=== PATIENT | male | born 1945 | race Hispanic/Latino ===

== ENCOUNTER → 2020-11-22 | Outpatient (CLI) | payer MEDICARE | END | disposition home or self-care (01) | LOC: RAH 09:37 | PROVIDERS: ATTEND Internal Medicine | DX: R05 Cough (principal) | CPT/HCPCS: 71046 ==

== ENCOUNTER → 2021-05-22 | Outpatient (CLI) | payer MEDICARE | END | disposition home or self-care (01) | LOC: RAH 14:07 | PROVIDERS: ATTEND Internal Medicine | DX: I08.3 Combined rheumatic disorders of mitral, aortic and tricuspid valves (principal); I44.0 Atrioventricular block, first degree; I11.9 Hypertensive heart disease without heart failure; E78.5 Hyperlipidemia, unspecified; E11.9 Type 2 diabetes mellitus without complications | CPT/HCPCS: 93306; 93356 ==

== ENCOUNTER → 2023-07-10 | Outpatient (CLI) | payer OTHER ==
[~2023-07-10] MED LIST: AMLO5TAB4 PO; CYAN-52 PO; FAMO20TA8 PO; FOLI1 PO
== END | disposition home or self-care (01) ==
LOC: WHH 11:19
PROVIDERS: ATTEND Podiatrist Foot & Ankle Surgery
DX: T87.89 Other complications of amputation stump (principal); I70.245 Atherosclerosis of native arteries of left leg with ulceration of other part of foot; I10 Essential (primary) hypertension; N40.0 Benign prostatic hyperplasia without lower urinary tract symptoms; E11.42 Type 2 diabetes mellitus with diabetic polyneuropathy; E11.52 Type 2 diabetes mellitus with diabetic peripheral angiopathy with gangrene; I96 Gangrene, not elsewhere classified; E11.65 Type 2 diabetes mellitus with hyperglycemia; E78.5 Hyperlipidemia, unspecified; E03.9 Hypothyroidism, unspecified; E11.69 Type 2 diabetes mellitus with other specified complication; M86.8X8 Other osteomyelitis, other site; Z79.84 Long term (current) use of oral hypoglycemic drugs; Z79.899 Other long term (current) drug therapy; Y83.5 Amputation of limb(s) as the cause of abnormal reaction of the patient, or of later complication, without mention of misadventure at the time of the procedure
CPT/HCPCS: G0463; A6248; A4450

== ENCOUNTER → 2023-07-17 | Outpatient (CLI) | payer OTHER ==
[~2023-07-17] MED LIST changes: +LIDOCAINE HCL 4% LTA SOL 4 ML VIAL TP ONE
== END | disposition home or self-care (01) ==
LOC: WHH 08:45
PROVIDERS: ATTEND Podiatrist Foot & Ankle Surgery
DX: T87.89 Other complications of amputation stump (principal); I70.245 Atherosclerosis of native arteries of left leg with ulceration of other part of foot; I10 Essential (primary) hypertension; N40.0 Benign prostatic hyperplasia without lower urinary tract symptoms; E11.42 Type 2 diabetes mellitus with diabetic polyneuropathy; E11.52 Type 2 diabetes mellitus with diabetic peripheral angiopathy with gangrene; I96 Gangrene, not elsewhere classified; E11.65 Type 2 diabetes mellitus with hyperglycemia; E78.5 Hyperlipidemia, unspecified; E03.9 Hypothyroidism, unspecified; E11.69 Type 2 diabetes mellitus with other specified complication; M86.8X8 Other osteomyelitis, other site; Z79.84 Long term (current) use of oral hypoglycemic drugs; Z79.899 Other long term (current) drug therapy; Y83.5 Amputation of limb(s) as the cause of abnormal reaction of the patient, or of later complication, without mention of misadventure at the time of the procedure
CPT/HCPCS: 11042; 87070; 87077 ×4; 87186 ×4; 11045; A6260

== ENCOUNTER → 2023-07-31 | Outpatient (CLI) | payer OTHER | END | disposition home or self-care (01) | LOC: WHH 08:06 | PROVIDERS: ATTEND Podiatrist Foot & Ankle Surgery | DX: T87.89 Other complications of amputation stump (principal); I70.245 Atherosclerosis of native arteries of left leg with ulceration of other part of foot; L97.526 Non-pressure chronic ulcer of other part of left foot with bone involvement without evidence of necrosis; E11.42 Type 2 diabetes mellitus with diabetic polyneuropathy; E11.52 Type 2 diabetes mellitus with diabetic peripheral angiopathy with gangrene; I96 Gangrene, not elsewhere classified; E11.69 Type 2 diabetes mellitus with other specified complication; M86.8X8 Other osteomyelitis, other site; I10 Essential (primary) hypertension; E03.9 Hypothyroidism, unspecified; E78.2 Mixed hyperlipidemia; N40.0 Benign prostatic hyperplasia without lower urinary tract symptoms; E66.9 Obesity, unspecified; Z68.28 Body mass index [BMI] 28.0-28.9, adult; Z79.84 Long term (current) use of oral hypoglycemic drugs; Z79.899 Other long term (current) drug therapy; Y83.5 Amputation of limb(s) as the cause of abnormal reaction of the patient, or of later complication, without mention of misadventure at the time of the procedure | CPT/HCPCS: G0463 ==

== ENCOUNTER 2024-01-14 17:36 | Emergency (ER) | payer OTHER ==
[~2024-01-14] VITALS: Ht 172.7 cm; Wt 81.6 kg
[~2024-01-14 17:36] MED LIST changes: -AMLO5TAB4 PO; -LIDOCAINE HCL 4% LTA SOL 4 ML VIAL TP ONE
[2024-01-14] MEDS ORDERED: rocuRONium bROMide 10MG/1ML 5ML VL IV ONE (17:37)
[2024-01-14 18:22] LABS: HEMATOCRIT 32.7 % (42-54); MEAN CORPUSCULAR HEMOGLOBIN 29.8 pg (27.0-33.0); MEAN CORPUSCULAR HGB CONC 35.2 g/dL (32.0-36.0); MEAN CORPUSCULAR VOLUME 84.7 fL (79-99); RED BLOOD CELL COUNT(AUTO) 3.86 MIL/uL (4.50-6.20); RED CELL DISTRIBUTION WIDTH 12.5 % (11.0-15.5); WHITE BLOOD COUNT (AUTO) 13.9 K/uL (4.8-10.8)
[2024-01-14 18:40] LABS: CREATININE 1.3 mg/dL (0.5-1.3); POTASSIUM 3.5 mmol/L (3.5-5.1)
[2024-01-14 18:49] LABS: BILIRUBIN,TOTAL 0.5 mg/dL (0.2-1.0)
[2024-01-14 19:12] LABS: INR 0.99 (0.85-1.15); PROTHROMBIN TIME 10.7 SEC (9.6-11.6)
[2024-01-14 19:14] LABS: PARTIAL THROMBOPLASTIN TIME 22.2 SEC (26.3-35.5)
[2024-01-14 21:11] LABS: APPEARANCE,URINE CLEAR (CLEAR); BILIRUBIN,URINE NEGATIVE (NEGATIVE); COLOR,URINE COLORLESS (YELLOW); GLUCOSE, URINE (UA) >=1000 mg/dL (NEGATIVE); KETONES,URINE 10 mg/dL (NEGATIVE); LEUKOCYTE ESTERASE ,URINE NEGATIVE Leu/uL (NEGATIVE); NITRATE,URINE NEGATIVE (NEGATIVE); OCCULT BLOOD,URINE NEGATIVE (NEGATIVE); PROTEIN,URINE 20 mg/dL (NEGATIVE); UROBILINOGEN,URINE 0.2 mg/dL (0.2-1.0)
[2024-01-14 21:12] LABS: ADD UA MICROSCOPIC YES
[2024-01-14 21:15] LABS: BACTERIA,URINE None Seen /HPF (None Seen)
[2024-01-14] MEDS: ETOMIDATE 20MG VIAL IVP ONE (21:18)
[2024-01-14] MEDS: FENTanyl 1000MCG+NS 100ML 100 ML IV ONE (21:18)
[2024-01-14] MEDS: HUM PROTHROMBIN CPLX(PCC)-LANS 500 UNIT VIAL IV ONE (21:18)
[2024-01-14] MEDS: proPOFol 1000 MG/100 ML 100 ML IV ONE (21:18)
[2024-01-14] MEDS: HUMAN PROTHROMBIN COMPLX(PCC) 500 UNIT KIT IV STA (21:18)
[2024-01-14] MEDS: proPOFol 1000 MG/100 ML IV PRN (21:19)
[2024-01-14 21:20] VITALS: PULSE 113; O2SAT 100
[2024-01-14] MEDS: niCARDIpine 25MG INJ 50 MG in 0.9% NACL 250ML 230 ML IV STA (21:20)
[2024-01-14] MEDS: FENTanyl 1000MCG+NS 100ML 100 ML IV SCH (21:20)
[2024-01-14 23:04] VITALS: BP 137/68; PULSE 67; RESP 16; TEMP 97.9; O2SAT 100
== END 2024-01-14 23:20 | disposition short-term general hospital (02) ==
LOC: EDH 17:36
DX: I60.9 Nontraumatic subarachnoid hemorrhage, unspecified (principal); E11.65 Type 2 diabetes mellitus with hyperglycemia; I10 Essential (primary) hypertension; Z79.899 Other long term (current) drug therapy; Z98.890 Other specified postprocedural states
CPT/HCPCS: 99291; 84484; 80053; 83690; 85027; 85610; 85730; 82948; 82010; 81001; 36415; 71045; 70450; 96365; 93005; 31500; J3010; J3490 ×3; J2704 ×2; J7050; C9159; 94002; C9132

== ENCOUNTER 2024-03-25 08:08 | Observation (INO) | payer OTHER ==
[~2024-03-25] VITALS: Ht 172.7 cm; Wt 70.9 kg
[2024-03-25] VITALS (10 sets, daily range): BP systolic 110–144; BP diastolic 44–60; PULSE 57–66; RESP 15–18; TEMP 97.5–98.1; O2SAT 98–99
--- NOTE | 2024-03-25 09:11 | HMCIMG ---
US ARTERIAL UNILA LOW EXT DUPL HISTORY: Ischemia ulcer COMPARISON: None TECHNIQUE: Right lower extremity arterial Doppler ultrasound study was performed. FINDINGS: Biphasic arterial waveforms are noted in the right common femoral, deep femoral, superficial femoral, popliteal, and anterior tibial arteries. Abnormal monophasic arterial waveforms are seen in the right posterior tibial and dorsalis pedal arteries. On the right, the peak systolic velocity of the common femoral artery is 110 cm/s, the proximal femoral artery is 67 cm/s, the mid femoral artery is 78 cm/s, the distal femoral artery is 48 cm/s, the distal popliteal artery is 93 cm/s, the anterior tibial artery is 52 cm/s, the posterior tibial artery artery is 74 cm/s,and the dorsalis pedal artery is 45 cm/s. IMPRESSION: 1. Atherosclerotic disease. 2. Biphasic arterial waveforms are noted in the right common femoral, deep femoral, superficial femoral, popliteal, and anterior tibial arteries. Abnormal monophasic arterial waveforms are seen in the right posterior tibial and dorsalis pedal arteries.
[2024-03-25 09:18] LABS: BASOPHILS # (AUTO) 0.03 K/uL (0.00-0.20); BASOPHILS % (AUTO) 0.5 % (0.0-5.0); EOSINOPHILS # (AUTO) 0.21 K/uL (0.00-0.70); EOSINOPHILS % (AUTO) 3.3 % (0.0-8.0); HEMATOCRIT 27.1 % (42-54); IMMATURE GRANULOCYTE ABSOLUTE 0.04 K/uL (0-1); LYMPHOCYTES # (AUTO) 1.2 K/uL (1.0-4.8); MEAN CORPUSCULAR HEMOGLOBIN 29.6 pg (27.0-33.0); MEAN CORPUSCULAR HGB CONC 32.5 g/dL (32.0-36.0); MEAN CORPUSCULAR VOLUME 91.2 fL (79-99); MONOCYTES # (AUTO) 0.4 K/uL (0.1-1.0); MONOCYTES % (AUTO) 5.4 % (3.0-13.0); NEUTROPHILS # (AUTO) 4.6 K/uL (1.8-7.7); NEUTROPHILS % (AUTO) 71.2 % (40.0-77.0); PLATELET COUNT (AUTO) 325 K/uL (130-400); RED BLOOD CELL COUNT(AUTO) 2.97 MIL/uL (4.50-6.20); RED CELL DISTRIBUTION WIDTH 13.4 % (11.0-15.5); WHITE BLOOD COUNT (AUTO) 6.4 K/uL (4.8-10.8)
[2024-03-25 09:35] LABS: POTASSIUM 4.3 mmol/L (3.5-5.1)
[2024-03-25 09:38] LABS: INR 0.99 (0.85-1.15); PROTHROMBIN TIME 10.7 SEC (9.6-11.6)
[2024-03-25 09:39] LABS: PARTIAL THROMBOPLASTIN TIME 27.5 SEC (26.3-35.5)
[2024-03-25 09:47] LABS: ALBUMIN 3.1 g/dL (3.5-5.0); BILIRUBIN,TOTAL 0.3 mg/dL (0.2-1.0); MAGNESIUM 2.4 mg/dL (1.80-2.40); TOTAL PROTEIN, SERUM 7.3 g/dL (6.0-8.3)
--- NOTE | 2024-03-25 10:25 | HMCIMG ---
CHEST 1VW HISTORY: Peripheral arterial disease COMPARISON: 01/14/2024 FINDINGS: A frontal projection of the chest was obtained. No acute pulmonary infiltrates is seen. The heart is normal in size. Prominent interstitial markings are seen. No evidence of aortic calcification is seen. IMPRESSION: 1. No acute pulmonary infiltrate is seen.
[2024-03-25] MEDS ORDERED: IODIXANOL 320 MG/ML 100 ML VIAL ONE (15:24)
[2024-03-25] MEDS ORDERED: LIDOCAINE HCL 400MG/20ML VIAL ONE (15:24)
[2024-03-25] MEDS ORDERED: SODIUM BICARB 50MEQ 50ML VIAL 50 ML ONE (15:24)
[2024-03-25] MEDS ORDERED: HEParin-NS 1,000 UNIT/500 ML 1,000 ML IV ONE (15:24)
[2024-03-25] MEDS ORDERED: HEParin 10,000 UNIT/10ML (1,000 UNIT/ML) VIAL ONE (15:24)
[2024-03-25] MEDS ORDERED: NITROGLYCERIN 50MG VIAL ONE (15:25)
[2024-03-25] MEDS ORDERED: MIDAZOLAM HCL 1 MG/ML 2ML VIAL ONE (15:55)
[2024-03-25] MEDS ORDERED: FENTanyl CITRate PF 50 MCG/1 ML 2ML VIAL ONE (15:55)
--- NOTE | 2024-03-25 16:10 | NUR ---
1545: PT TO ACCOUNT ASSISTANT WITH RN.
[2024-03-25] MEDS ORDERED: TICAGrelor 90 MG TABLET ONE (16:44)
[2024-03-25] MEDS ORDERED: HEParin-NS 1,000 UNIT/500 ML 500 ML IV ONE (16:55)
[2024-03-25] MEDS ORDERED: ASPIRIN 81MG CHEW TAB ONE (17:29)
[2024-03-25] MEDS ORDERED: ASPI-1443 PO (17:57)
[2024-03-25] MEDS ORDERED: TICA90TA PO (17:57)
[2024-03-25] MEDS ORDERED: 0.9%NACL 1000ML 1,000 ML IV SCH (18:00)
--- NOTE | 2024-03-25 18:11 | PRN ---
1. Abdominal Aortogram With Pelvic Runoff. 2. Right Lower Extremity Arteriogram 3. Right Lower Extremity Intravascular Ultrasound Sfa/Popliteal/Tibioperoneal 4. Shockwave Angioplasty Right Tibioperoneal 5. Shockwave Angioplasty Right Distal Superficial Femoral And Popliteal 6. Drug Coated Balloon Angioplasty Right Tibioperoneal 7. 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 Technique: Under local anesthesia with 1% lidocaine using fluoroscopic and ult rasound guidance with micropuncture technique the left common femoral was punctured anteriorly and a six Mexican sheath was inserted. An Omni flush catheter was positioned in the distal abdominal aorta and aortography with pelvic follow-through was performed. The Omni flush was repositioned in the right SFA and right lower extremity digital subtraction arteriography was obtained in sequential fashion from the common femoral to the foot. Weight based heparin, 180 mg Brilinta, and 325 mg aspirin was administered. Intravascular ultrasound was performed on the right tibioperoneal, popliteal, and distal SFA. An exchange was made for a 6 x 60 mm shockwave which was used to treat the popliteal and distal superficial femoral simultaneously. We then exchanged for a 3 x 12 mm shockwave with which we treated the ostium of the tibioperoneal. ACD guided heparinization was continued with a 2nd bolus. We then performed balloon angioplasty with 40 x 4 mm DCB on the tibioperoneal, then we exchanged for a 6 x 60 mm DCB with which we treated the popliteal and distal SFA. Final results were inspected angiographically in the sheath was removed and hemostasis was obtained by use of Angio-Seal. Angiographic Results: The aorta, common iliacs, internal iliacs, external iliacs, and common femorals were free of disease on both sides. Right profunda is free of disease. The right superficial femoral is noted for eccentric 25% narrowing at its origin but this is not obstructive. The right superficial femoral is eccentrically narrowed by a calcified 70% stenosis in Jonathan's canal. The right popliteal is notable for a proximal 75-80% calcified eccentric stenosis. The anterior tibial is free of disease until the ankle, where it tapers to 0 (total occlusion) in the dorsalis pedis segment. It does not supply the plantar arch. The tibioperoneal on the right side is notable for calcified 70% ostial stenos is. The right peroneal is occluded in its proximal segment. It does not reconstitute. The right posterior tibial is widely patent throughout its length and it courses under the instep and supplies the plantar arch. Interventional Results: The 70% eccentric calcified SFA stenosis in Jonathan's canal is reduced to 20% residual. The 75-80% calcified eccentric stenosis in the proximal popliteal is reduced to 10% residual. The 70% calcified ostial tibioperoneal stenosis is reduced to 30% residual. Conclusions: Successful intervention on SFA, popliteal, and tibioperoneal disease the compromise flow to the right foot. There is now straight line flow to the plantar arch and throughout the calf. Complications: None HAYLEE SANCHEZ MD Mar 25, 2024 18:11
--- NOTE | 2024-03-25 18:45 | NUR ---
POST CATH received pt to room in no distress. breathing is non-labored, denies pain at this time, Jame RN had been in to check on pt. lt groin site is intact and no bleeding noted to drainage, good femoral pulse and pt is LT BKA. call spencer within reach and bed in low position. see post cath assessment.
--- NOTE | 2024-03-25 20:50 | NUR ---
MD NOTIFICATION attempted to contact Dr. Melgoza due to pt admitted with PEG tube and per pt he is NPO. Need order for use of PEG as well as order to resume feedings as at home. report to Ashley oncoming nurse for f/u.
[2024-03-25] MEDS: TICAGrelor 90 MG TABLET PO SCH (21:54)
[2024-03-25] MEDS: FAMOTIDINE 20MG TAB PO SCH (21:54)
--- NOTE | 2024-03-25 22:15 | NUR ---
Dr. Melgoza, listed as Primary Care Physician, returning call @ this time, asked regarding whether to initiate pt.'s bolus feedings;stated to find out who pt.'s primary care physician is, as he is only his magneto repairer.
[2024-03-26 00:15] VITALS: BP 158/59; PULSE 61; RESP 18; TEMP 97.7
[2024-03-26 04:00] VITALS: BP 131/51; PULSE 65; RESP 18; TEMP 97.5
[2024-03-26 05:40] LABS: MEAN CORPUSCULAR HEMOGLOBIN 30.3 pg (27.0-33.0); MEAN CORPUSCULAR HGB CONC 32.6 g/dL (32.0-36.0); MEAN CORPUSCULAR VOLUME 93.1 fL (79-99); RED BLOOD CELL COUNT(AUTO) 2.9 MIL/uL (4.50-6.20); RED CELL DISTRIBUTION WIDTH 13.1 % (11.0-15.5); WHITE BLOOD COUNT (AUTO) 7.7 K/uL (4.8-10.8)
[2024-03-26 05:59] LABS: CREATININE 0.8 mg/dL (0.5-1.3); POTASSIUM 4.2 mmol/L (3.5-5.1)
[2024-03-26 08:00] VITALS: BP 127/54; PULSE 61; RESP 15; TEMP 98.1; O2SAT 99
[2024-03-26] MEDS ORDERED: ASPIRIN 81MG CHEW TAB PO SCH ×2 (09:00)
[2024-03-26] MEDS ORDERED: FOLic ACID 1 MG TABLET PO SCH (09:00)
[2024-03-26] MEDS ORDERED: CYANOCOBALAMIN (VITAMIN B-12) 1,000 MCG TABLET PO SCH (09:00)
--- NOTE | 2024-03-26 10:45 | NUR ---
TUBE FEEDING attempted to contact Dr Melgoza because he has not made rounds and there are still no orders that we are able to use the patient's peg tube. called the office and they referred me to PA Mrs. Melgoza. She states that she will contact him and to go ahead and get a consult for medical management.
--- NOTE | 2024-03-26 10:56 | NUR ---
Initial assessment SW met with patient and pt's guardian Vasyl Jhaveri [phone]. Pt was alert and oriented x4. Pt said that he resides with a family ( not his own) and rents a room from them. Pt said that he feels safe in that environment. Pt said that he has been living at that home for the past 5 years. Pt said that he has provider services to assist him with his adl's, home maintenance ad meal prep. Pt nor guardian were able to provider name of the provider agency. Pt said that he is receiving home health services "every day" for wound care however the pt nor guardian were able to provide the name of the home health agency. Pt said that he uses a wheelchair at all times. Pt said that his other guardian's Kilo Jhaveri assist him with transportation to all rab[place]. DCP is home. PCP is Dr Rojas Forrest and preferred pharmacy is [facility]. SW educated the pt on MPOA however pt declined to addressed. Mr Jhaveri said that he is the patient's guardian however did not disclosed his role in the patient's life. Mr Jhaveri said that he was present to assist the patient with "medical reasons" however did not disclosed what he meant and did not know the name of the home health agency or provider agency currently providing care for the patient. Mr Jhaveri got upset and asked the SW to call the patient's PCP on further medical questions or " I can step aside as guardian". No current APS report as per Sidney at local APS office. Addendum: 03/26/24 at 1120 by KILO GIVENS Amended: Links added. Addendum: 03/26/24 at 1131 by KILO CORDERO SS Pt and friend/ Guardian were very evasive with SW. SW reviewed pt's previous IP stay on 07/02/23. Per previous assessment, pt lives with his granddaughters and hie friend/ guardian assist with medical transportation as needed.
--- NOTE | 2024-03-26 11:45 | NUR ---
VISIT Dr. Melgoza here to see pt and states to guardian who is at the nurse's station (inquiring about the feeding) that he misunderstood the call last night and that nursing may resume feedings as at home at this time. Riki had also brought in list of home meds and entered at this time. Riki states that if pt is going to be discharged that he would like to wait until pt is home to have provider give his daily meds instead of waiting for medications to be authorized to resume here. Feeding of one can of Jevity 1.5 given at this time after checking placement with air bolus, confirmed. Pt tolerated feeding well, HOB at 45 degrees and call spencer within reach.
[2024-03-26 12:00] VITALS: BP 134/57; PULSE 60; RESP 13; TEMP 98.1
--- NOTE | 2024-03-26 12:12 | PN ---
Patient feels well and has warm right foot with anterior and posterior tibial pulses intact. Denies pain in his leg. No catheterization complication. Feeding was interrupted because of his procedure yesterday and confusion over the formulate to be used for tube feeding but now he is receiving a meal and can be discharged after that. Vitals/Labs Vital Signs Date Time Temp Pulse Resp B/P (MAP) Pulse Ox O2 Delivery O2 Flow Rate FiO2 03/26/24 08:00 98.1 61 15 127/54 98 Room Air 03/25/24 20:00 0 21 Laboratory Tests 03/26/24 05:11 Medications Current Medications Lidocaine HCl 20 ml STK-MED ONCE .ROUTE; Start 03/25/24 at 15:24; Stop 03/25/24 at 15:24; Status DC Sodium Bicarbonate 50 ml @ As Directed STK-MED ONCE .ROUTE; Start 03/25/24 at 15:24; Stop 03/25/24 at 15:24; Status DC Iodixanol 100 ml STK-MED ONCE .ROUTE; Start 03/25/24 at 15:24; Stop 03/25/24 at 15:24; Status DC Heparin Sodium (Porcine) 10,000 unit STK-MED ONCE .ROUTE; Start 03/25/24 at 15:24; Stop 03/25/24 at 15:24; Status DC Heparin Sodium/ Sodium Chloride 1,000 ml @ As Directed STK-MED ONCE IV; Start 03/25/24 at 15:24; Stop 03/25/24 at 15:25; Status DC Nitroglycerin 50 mg STK-MED ONCE .ROUTE; Start 03/25/24 at 15:25; Stop 03/25/24 at 15:25; Status DC Fentanyl Citrate 100 mcg STK-MED ONCE .ROUTE; Start 03/25/24 at 15:55; Stop 03/25/24 at 15:55; Status DC Midazolam HCl 2 mg STK-MED ONCE .ROUTE; Start 03/25/24 at 15:55; Stop 03/25/24 at 15:55; Status DC Ticagrelor 90 mg STK-MED ONCE .ROUTE; Start 03/25/24 at 16:44; Stop 03/25/24 at 16:50; Status DC Heparin Sodium/ Sodium Chloride 500 ml @ As Directed STK-MED ONCE IV; Start 03/25/24 at 16:55; Stop 03/25/24 at 16:55; Status DC Aspirin 81 mg STK-MED ONCE .ROUTE; Start 03/25/24 at 17:29; Stop 03/25/24 at 17:30; Status DC Aspirin 81 mg DAILY PO; Start 03/26/24 at 09:00; Stop 03/25/24 at 17:59; Status DC Sodium Chloride 1,000 ml @ 125 mls/hr AD IV; Start 03/25/24 at 18:00; Stop 03/25/24 at 21:59; Status DC Aspirin 81 mg DAILY PO; Start 03/26/24 at 09:00; Stop 04/25/24 at 08:59 Ticagrelor 90 mg BID PO Last administered on 03/25/24at 21:54; Start 03/25/24 at 21:00; Stop 04/24/24 at 20:59 Vitamin B Complex 1,000 mcg DAILY PO; Start 03/26/24 at 09:00; Stop 04/25/24 at 08:59 Famotidine 20 mg BID PO Last administered on 03/25/24at 21:54; Start 03/25/24 at 21:00; Stop 04/24/24 at 20:59 Folic Acid 1 mg DAILY PO; Start 03/26/24 at 09:00; Stop 04/25/24 at 08:59 HAYLEE SANCHEZ MD Mar 26, 2024 12:12
[2024-03-26] MEDS ORDERED: ATOR40TA71 PEG (13:06)
[2024-03-26] MEDS ORDERED: TAMS-1 PEG (13:06)
[2024-03-26] MEDS ORDERED: HYDR100T15 PEG (13:06)
[2024-03-26] MEDS ORDERED: METO10TA3 PEG (13:06)
[2024-03-26] MEDS ORDERED: FERS325 PEG (13:06)
[2024-03-26] MEDS ORDERED: LEVO25CA4 PEG (13:06)
[2024-03-26] MEDS ORDERED: INSU3INS3 SQ (13:06)
[2024-03-26] MEDS ORDERED: ASPI-1005 PEG (13:06)
[2024-03-26] MEDS ORDERED: FLUO20TA29 PEG (13:06)
[2024-03-26] MEDS ORDERED: NITR0.4T50 SL (13:06)
[2024-03-26] MEDS ORDERED: ASCO500C18 PEG (13:06)
[2024-03-26] MEDS ORDERED: UBID50TA3 PEG (13:06)
--- NOTE | 2024-03-26 14:45 | NUR ---
DISCHARGE Guardian is asking to be discharged mariza and states that he will assure that meds are given at home as well as any other feedings. Does not want to wait for any further tx. pt's son who is his provider is at bedside and discharge instructions given at this time. all verbalized understanding of discharge instructions and deny questions r/t tx or care provided. SL removed with cath intact. [place] catheter bag was leaking so bag changed out at this time with instructions given to son on how to empty the bag. taken to lobby via w/c by Alissa GONGORA.
== END 2024-03-26 14:45 | disposition home or self-care (01) ==
LOC: EDH 08:08 → EDHIP 08:09 → 4AH 18:30
PROVIDERS: ADMIT Internal Medicine Cardiovascular Disease; ATTEND Internal Medicine Cardiovascular Disease
DX: I70.238 Atherosclerosis of native arteries of right leg with ulceration of other part of lower leg (principal); L97.519 Non-pressure chronic ulcer of other part of right foot with unspecified severity; E11.9 Type 2 diabetes mellitus without complications; E78.5 Hyperlipidemia, unspecified; I10 Essential (primary) hypertension; Z79.899 Other long term (current) drug therapy; Z86.2 Personal history of diseases of the blood and blood-forming organs and certain disorders involving the immune mechanism
CPT/HCPCS: 75716; 37252; 37253; 83735; 80053; 85347; 85025; 85610; 85730; 36415 ×2; 71045; 93926; 80061; 80048; 85027; 82948; C1725 ×2; C1894 ×2; C1760; C2623; C1893; C1761; C1753; C1769 ×2; C9764; C9772; G0378 ×20; G0379; J3010; J3490 ×3; J1644 ×3; Q9967; 99156; 99157; J2250

== ENCOUNTER → 2024-04-23 | Outpatient (CLI) | payer OTHER ==
[~2024-04-23] MED LIST changes: +ASCO500C18 PEG; +ASPI-1005 PEG; +ASPI-1443 PO; +ATOR40TA71 PEG; +FERS325 PEG; +FLUO20TA29 PEG; +HYDR100T15 PEG; +INSU3INS3 SQ; +LEVO25CA4 PEG; +METO10TA3 PEG; +NITR0.4T50 SL; +TAMS-1 PEG; +TICA90TA PO; +UBID50TA3 PEG
--- NOTE | 2024-04-23 10:54 | HMCIMG ---
US ABDOMINAL RUQ\E\LTD HISTORY: Jaundice COMPARISON: None TECHNIQUE: Right upper quadrant abdominal ultrasound study was performed. FINDINGS: Liver measures 16 cm. Portal vein is patent. The visualized portion of the pancreas is within normal limits. Liver is echogenic consistent with liver parenchymal disease. No gallstone is seen. Common duct measures 3 mm. No evidence of gallbladder wall thickening is seen. Right kidney measures 10.9 x 5.4 x 4.1 cm. No hydronephrosis is seen of the right kidney. There is right upper pole simple renal cyst measuring 13 x 10 mm. IMPRESSION: 1. No gallstones or ductal dilatation is seen. 2. No hydronephrosis is seen.
== END | disposition home or self-care (01) ==
LOC: RAH 04-08 08:09
DX: N28.1 Cyst of kidney, acquired (principal); R17 Unspecified jaundice
CPT/HCPCS: 76705

== ENCOUNTER → 2025-04-17 | Emergency (ER) | payer MEDICARE, OTHER ==
[~2025-04-17] VITALS: Ht 172.7 cm; Wt 84.8 kg
[~2025-04-17] MED LIST changes: +CEPH500B PO; -LEVO25CA4 PEG; +LEVO25CA5 PEG; -TAMS-1 PEG; +TAMS-55 PEG
--- NOTE | 2025-04-17 08:56 | ERN ---
General Chief Complaint: Urinary Retention Stated Complaint: UNABLE TO URINATE Time Seen by MD: 08:36 Source: patient History of Present Illness Initial Comments PATIENT IS A 79-YEAR-OLD GENTLEMAN COMING IN COMPLAINING OF URINE RETENTION. PER PATIENT HE HAS A BEASLEY CATHETER IN PLACE STATES HE HAS HAD IT FOR OVER A MONTH AND HE NOTICED HE WAS NOT ABLE TO URINATE SINCE YESTERDAY. NO FEVER OR CHILLS NO NAUSEA NO VOMITING. Allergies: Coded Allergies: No Known Drug Allergies (Unverified Allergy, Unknown, 02/01/21) Home Meds Active Scripts Ticagrelor (Brilinta) 90 Mg Tablet, 1 TAB PO BID for 90 Days, #180 TAB 0 Refills Prov:HAYLEE SANCHEZ MD 03/25/24 Aspirin (Aspirin EC) 81 Mg Tablet.dr, 1 TAB PO DAILY for 90 Days, #30 TAB 0 Refills Prov:HAYLEE SANCHEZ MD 03/25/24 Folic Acid (Folvite) 1 Mg Tab, 1 MG PO DAILY for 30 Days, #30 TAB Prov:NETTIE BENITEZ 07/04/23 Famotidine (Famotidine) 20 Mg Tablet, 20 MG PO BID for 30 Days, #60 TAB Prov:NETTIE BENITEZ 07/04/23 Cyanocobalamin (Vitamin B-12) (Vitamin B-12) 1,000 Mcg Tablet, 1000 MCG PO DAILY for 30 Days, #30 TAB Prov:NETTIE BENITEZ 07/04/23 Reported Medications Ascorbic Acid (Vitamin C) 500 Mg Capsule, 1 CAP PEG DAILY for 28 Days, #28 CAP 0 Refills 03/26/24 Tamsulosin HCl (Flomax) 0.4 Mg Cap.er.24h, 1 CAP PEG HS for 30 Days, #30 CAP 0 Refills 03/26/24 Nitroglycerin (Nitroglycerin) 0.4 Mg Tab.subl, 1 TAB SL AD for chest pain, #25 TAB 0 Refills 1st sign of attack; may repeat every 5 mins; if pain persists after 3 in 15 min, medical attention is recommended 03/26/24 Metoclopramide HCl (Metoclopramide HCl) 10 Mg Tablet, 1 TAB PEG BID for 30 Days, #120 TAB 0 Refills 03/26/24 Levothyroxine Sodium (Levothyroxine) 25 Mcg Capsule, 25 CAP PEG DAILY for 30 Days, #30 CAP 0 Refills 03/26/24 Insulin Glargine,Hum.rec.anlog (Lantus Solostar) 100 Unit/Ml (3 Ml) Insuln.pen, 20 UNIT SQ DAILY for 30 Days, ML 0 Refills 03/26/24 Hydralazine HCl (Hydralazine HCl) 100 Mg Tablet, 1 TAB PEG TID for 30 Days, #90 TAB 0 Refills 03/26/24 Fluoxetine HCl (Fluoxetine HCl) 20 Mg Tablet, 1 TAB PEG DAILY for 30 Days, #30 TAB 0 Refills 03/26/24 Ferrous Sulfate (Ferrous Sulfate) 325 Mg (65 Mg Iron) Ectab, 1 TAB PEG DAILY for 30 Days, #30 TAB 0 Refills 03/26/24 Atorvastatin Calcium (Atorvastatin Calcium) 40 Mg Tablet, 1 TAB PEG DAILY for 30 Days, #30 TAB 0 Refills 03/26/24 Aspirin (ASPIRIN 81MG CHEW TAB) 81 Mg Tab.chew, 1 TAB PEG DAILY for 30 Days, #30 TAB 0 Refills 03/26/24 Ubidecarenone (Coq10) 50 Mg Tab.chew, 50 MG PEG DAILY, TAB.CHEW 03/26/24 Past Medical History Past Medical History: Anemia, Diabetes-Type II, Heart Disease, Hypertension, Prostatitis, Stroke Medical History Other: NEUROPATHY Past Surgical History: Other Surgical History Other: LEFT FOOT SX ROS Dictation CONSTITUTIONAL: NO CHILLS, NO FEVER, NO WEAKNESS, NO DIAPHORESIS, NO MALAISE. HEAD/FACE: NO SIGNS OF TRAUMA. EENT: NO EYE PAIN, NO BLURRED VISION, NO TEARING, NO DOUBLE VISION, NO EAR PAIN, NO EAR DISCHARGE, NO NOSE PAIN, NO NASAL CONGESTION, NO THROAT PAIN, NO THROAT SWELLING, NO MOUTH PAIN. RESPIRATORY: NO COUGH, NO ORTHOPNEA, NO SOB, NO STRIDOR, NO WHEEZING. CARDIOVASCULAR: NO CHEST PAIN, NO EDEMA, NO PALPITATIONS, NO SYNCOPE. GASTROINTESTINAL/ABDOMINAL: NO ABDOMINAL PAIN, NO CONSTIPATION, NO DIARRHEA, NO NAUSEA, NO VOMITING. GENITOURINARY: NO ABNORMAL DISCHARGE, NO DYSURIA, NO FREQUENT URINATION, NO HEMATURIA. COMPLAINTS OF PAIN IN THE GENITALS. MUSCULOSKELETAL: NO BACK PAIN, NO GOUT, NO JOINT PAIN, NO JOINT SWELLING, NO MUSCLE PAIN, NO MUSCLE STIFFNESS, NO NECK PAIN. INTEGUMENTARY: NO CHANGE IN COLOR, NO CHANGE IN HAIR/NAILS, NO DRYNESS, NO LESION, NO LUMPS, NO RASH. NEUROLOGICAL/PSYCH: NO ANXIETY, NOT DEPRESSED, NO EMOTIONAL PROBLEM, NO HEADACHE, NO NUMBNESS, NO PRE-EXISTING DEFICIT, NO HISTORY OF SEIZURES, NO TREMORS, NO WEAKNESS. HEMATOLOGIC/LYMPHATIC: NOT ANEMIC, NO HISTORY OF BLOOD CLOTS, NO APPARENT BLEEDING, NO BRUISING, GLANDS NOT SWOLLEN. ALL SYSTEMS NEGATIVE, EXCEPT NOTED. Physical Exam Physical Exam Dictation VITAL SIGNS: REVIEWED. GENERAL APPEARANCE: ALERT, ORIENTED X3, NO ACUTE DISTRESS, OBESE. HEAD AND FACE: NON-TRAUMATIC. EYES: PERRL, PINK CONJUNCTIVAS, EYELID NO TRAUMA, ANTERIOR CHAMBER CLEAR. EARS: PINNAS INTACT AND NO SIGNS OF TRAUMA OR ERYTHEMA. EAR CANALS CLEAR AND NO DISCHARGE. TMS NO ERYTHEMA. NOSE: NO DISCHARGE, NO BLEEDING. OROPHARYNX: MOUTH NORMAL, TEETH NO CARIES, TONGUE PINK. PHARYNX CLEAR, NO ERYTHEMA. TONSILS NO EXUDATES, NO ABSCESSES NOTED. MUCOUS MEMBRANE MOIST. NECK: SUPPLE, NON-TENDER, NO THYROMEGALY, NO MASSES, NO JVD, NO BRUITS. BREAST: DEFERRED. CHEST: NO TENDERNESS, NO CREPITUS, NO PARADOXICAL MOVEMENT, NO RETRACTIONS. LUNGS: CLEAR, WELL-VENTILATED, SYMMETRIC, NO RALES, NO WHEEZING, NO RHONCHI, NO STRIDOR, GOOD BREATH SOUNDS BILATERALLY. HEART: REGULAR RATE, REGULAR RHYTHM, NO MURMUR, NO GALLOPS. VASCULAR: NO PERIPHERAL EDEMA. ABDOMEN: SOFT, POSITIVE BOWEL SOUNDS,DISTENDED, NO GUARDING, LOWER ABDOMINAL TENDER, NO REBOUND, NO MASSES NO HEPATOMEGALY, NO SPLENOMEGALY, NO GARCIA'S SIGN, NO HERNIAS. RECTAL: DEFERRED. GENITAL: DEFERRED. NEUROLOGICAL: NORMAL SPEECH, GROSS MOTOR FUNCTION INTACT, GROSS SENSORY FUN CTION INTACT. MUSCULOSKELETAL: NECK NONTENDER, FULL RANGE OF MOTION, BACK NONTENDER, FULL RANGE OF MOTION. EXTREMITIES: NONTENDER, FULL RANGE OF MOTION. SKIN: COLOR PINK, DRY, NO TURGOR, NO RASH, NO LACERATIONS, NO ABRASIONS, NO CONTUSIONS. LYMPHATICS: DEFERRED. Results Laboratory and Microbiology Labs Reviewed?: Yes MDM MDM: DIFFERENTIAL DIAGNOSIS:, BEASLEY CATHETER MALFUNCTION, URINE RETENTION, CHRONIC INDWELLING BEASLEY CATHETER RATIONALE: TESTS CONSIDERED AND ORDERED SECONDARY TO SHARED DECISION MAKING INCLUDE: PREVIOUS OUTSIDE RECORDS REVIEWED: OLD ER VISITS. RISK OF COMPLICATION AND/OR MORBIDITY OR MORTALITY OF PATIENT MANAGEMENT: NONE MEDICATIONS-PER MEDICATION RECONCILIATION NEED FOR HOSPITALIZATION: PATIENT DOES NOT MEET CRITERIA FOR HOSPITALIZATION. NEED FOR EMERGENCY MAJOR/MINOR SURGERY: NO PATIENT IS A 79-YEAR-OLD GENTLEMAN COMING IN COMPLAINING OF URINE RETENTION. PATIENT DOES HAS A BEASLEY CATHETER IN PLACE HAS HAD IT FOR A MONTH. BEASLEY CATHETER WAS REMOVED AND EXCHANGED FOR NO ONE. PATIENT WAS ABLE TO URINATE 600 ML OF URINE WERE PUT OUT PATIENT STATES HE FEELS MUCH BETTER. HE WILL BE DISCHARGED IN STABLE CONDITION I DID ADVISED HIM APPROPRIATE FOLLOW UP WITH THE UROLOGIST AND OR PCP. ED Course Vital Signs Date Time Temp Pulse Resp B/P (MAP) Pulse Ox O2 Delivery O2 Flow Rate FiO2 04/17/25 08:35 97.7 81 16 180/65 99 Room Air DX & DISP Disposition: Discharge Departure Impression: Primary Impression: Chronic indwelling Beasley catheter Additional Impression: Malfunction of Beasley catheter Condition: Stable Scripts Cephalexin Monohydrate (Keflex) 500 Mg Cap 1 CAP PO BID for 10 Days, #20 CAP 0 Refills Prov: GABRIELE CROCKER MD 04/17/25 Additional Instructions: FOLLOW-UP WITH PRIMARY CARE PROVIDER IN 1 TO 2 DAYS. TAKE MEDICATIONS DIRECTED HERE IN THE EMERGENCY ROOM. OKAY TO CONTINUE HOME MEDICATIONS UNLESS OTHERWISE DISCUSSED DURING YOUR VISIT IN THE EMERGENCY ROOM TODAY. RETURN TO YOUR NEAREST EMERGENCY ROOM IF SYMPTOMS WORSEN OR IF THERE IS NO IMPROVEMENT. CALL 911 IF YOU NEED IMMEDIATE ASSISTANCE. TAKE TYLENOL [id number] NEEDED AND IF NO CONTRAINDICATIONS ARE PRESENT. INCREASE ORAL HYDRATION. A WOUND CULTURE OR URINE CULTURE WAS ORDERED HERE IN THE EMERGENCY ROOM DEPARTMENT PLEASE FOLLOW-UP WITH PRIMARY CARE PROVIDER AND ADVISE THEM TO GET REPORTS FROM OUR FACILITY. IF YOU HAD ANY EDWIN WRAP/SPLINTS THAT WERE APPLIED HERE, PLEASE DO NOT REMOVE THEM UNTIL YOU SEE YOUR PRIMARY CARE OR SPECIALTY. REFERRALS: Referrals: NIYA GUTIÉRREZ MD (PCP) SAVAGE ZAPATA MD Time of Disposition: 08:56 GABRIELE CROCKER MD Apr 17, 2025 08:56
--- NOTE | 2025-04-17 08:58 | NUR ---
PATIENT RETAINING 560 CC OF URINE AFTER BLADDER SCAN [address] [place] [address] CROCKER, SINCE PATIENT HAS HAD PREVIOUS BEASLEY ON FOR OVER A MONTH WITH A LOT OF SEDIMENT IN URINE, PATIENT TOLERATED WELL 625 CC OF URIEN OUTPUT AFTER BEASLEY SWITCHED, PATIENT RESTING IN BED, CALL LIGHT IN REACH
[2025-04-17 09:03] VITALS: BP 141/48; PULSE 68; RESP 17; TEMP 97.6; O2SAT 95
--- NOTE | 2025-04-17 09:28 | NUR ---
DC PATIENT WAS DC'D BY DR CROCKER I EXPLAINED TO PATIENT AND PROVIDER FOR PATIENT TO FOLLOW UP WITH PCP, PROVIDED INFO BASED ON DIAGNOSIS, AND ANSWERED ANY FOLLOW UP QUESTIONS PATIENT WAS WHEELCHAIRED OUT OF ED BY PROVIDER, NO COMPLICATIONS
== END ==
LOC: EDH 08:34
DX: T83.091A Other mechanical complication of indwelling urethral catheter, initial encounter (principal); E11.40 Type 2 diabetes mellitus with diabetic neuropathy, unspecified; I11.9 Hypertensive heart disease without heart failure; Z79.4 Long term (current) use of insulin; Z79.82 Long term (current) use of aspirin; Z79.890 Hormone replacement therapy; Z79.899 Other long term (current) drug therapy; Z86.73 Personal history of transient ischemic attack (TIA), and cerebral infarction without residual deficits; Y84.6 Urinary catheterization as the cause of abnormal reaction of the patient, or of later complication, without mention of misadventure at the time of the procedure
CPT/HCPCS: 51702; 99284

== ENCOUNTER 2025-05-08 11:23 | Emergency (ER) | payer OTHER ==
[~2025-05-08] VITALS: Ht 170.2 cm; Wt 83.0 kg
--- NOTE | 2025-05-08 11:59 | NUR ---
BLADDER SCAN SHOWS 473 ML URINE
--- NOTE | 2025-05-08 12:00 | ERN ---
ED Note History of Present Illness Stated Complaint: INDWELLING BEASLEY CATHETER PROBLEM Chief Complaint: Urinary Catheter Problems Time Seen by MD: 11:37 Dictation: This is a 79-year-old male who presented to the emergency room with a family member complaining of an indwelling Beasley catheter that is not draining. He also reported that he is unable to empty the bladder and his lower abdomen has been distended with the discomfort. They stated that the Beasley catheter was changed 2 weeks ago by the home health care nurse. No fever chills or rigors. No hematuria. No constipation Temperature 97.4 pulse 78 respirations 20 blood pressure 153/61 with a pulse oximetry of 99% on room air Chronic medical problems include diabetes mellitus, chronic anemia, CVA, coronary artery disease, hypertension, neuropathy and prostatitis and BPH Allergies: Coded Allergies: No Known Drug Allergies (Unverified Allergy, Unknown, 02/01/21) Home Meds Active Scripts Cephalexin Monohydrate (Keflex) 500 Mg Cap, 1 CAP PO BID for 10 Days, #20 CAP 0 Refills Prov:GABRIELE CROCKER MD 04/17/25 Ticagrelor (Brilinta) 90 Mg Tablet, 1 TAB PO BID for 90 Days, #180 TAB 0 Refills Prov:HAYLEE SANCHEZ MD 03/25/24 Aspirin (Aspirin EC) 81 Mg Tablet.dr, 1 TAB PO DAILY for 90 Days, #30 TAB 0 Refills Prov:HAYLEE SANCHEZ MD 03/25/24 Folic Acid (Folvite) 1 Mg Tab, 1 MG PO DAILY for 30 Days, #30 TAB Prov:NETTIE BENITEZ 07/04/23 Famotidine (Famotidine) 20 Mg Tablet, 20 MG PO BID for 30 Days, #60 TAB Prov:NETTIE BENITEZ 07/04/23 Cyanocobalamin (Vitamin B-12) (Vitamin B-12) 1,000 Mcg Tablet, 1000 MCG PO DAILY for 30 Days, #30 TAB Prov:NETTIE BENITEZ 07/04/23 Reported Medications Ascorbic Acid (Vitamin C) 500 Mg Capsule, 1 CAP PEG DAILY for 28 Days, #28 CAP 0 Refills 03/26/24 Tamsulosin HCl (Flomax) 0.4 Mg Cap.er.24h, 1 CAP PEG HS for 30 Days, #30 CAP 0 Refills 03/26/24 Nitroglycerin (Nitroglycerin) 0.4 Mg Tab.subl, 1 TAB SL AD for chest pain, #25 TAB 0 Refills 1st sign of attack; may repeat every 5 mins; if pain persists after 3 in 15 min, medical attention is recommended 03/26/24 Metoclopramide HCl (Metoclopramide HCl) 10 Mg Tablet, 1 TAB PEG BID for 30 Days, #120 TAB 0 Refills 03/26/24 Levothyroxine Sodium (Levothyroxine) 25 Mcg Capsule, 25 CAP PEG DAILY for 30 Days, #30 CAP 0 Refills 03/26/24 Insulin Glargine,Hum.rec.anlog (Lantus Solostar) 100 Unit/Ml (3 Ml) Insuln.pen, 20 UNIT SQ DAILY for 30 Days, ML 0 Refills 03/26/24 Hydralazine HCl (Hydralazine HCl) 100 Mg Tablet, 1 TAB PEG TID for 30 Days, #90 TAB 0 Refills 03/26/24 Fluoxetine HCl (Fluoxetine HCl) 20 Mg Tablet, 1 TAB PEG DAILY for 30 Days, #30 TAB 0 Refills 03/26/24 Ferrous Sulfate (Ferrous Sulfate) 325 Mg (65 Mg Iron) Ectab, 1 TAB PEG DAILY for 30 Days, #30 TAB 0 Refills 03/26/24 Atorvastatin Calcium (Atorvastatin Calcium) 40 Mg Tablet, 1 TAB PEG DAILY for 30 Days, #30 TAB 0 Refills 03/26/24 Aspirin (ASPIRIN 81MG CHEW TAB) 81 Mg Tab.chew, 1 TAB PEG DAILY for 30 Days, #30 TAB 0 Refills 03/26/24 Ubidecarenone (Coq10) 50 Mg Tab.chew, 50 MG PEG DAILY, TAB.CHEW 03/26/24 Past Medical History Past Medical History: Anemia, Diabetes-Type II, Heart Disease, Hypertension, Prostatitis, Stroke Additional Past Medical Hx: NEUROPATHY Surgical History: Other Surgical History Other: LEFT FOOT SX RN Note Reviewed/Agreed w/PFSH: Yes Review of System Dictation Constitutional: Negative for fever,chills, and weight loss very hard of hearing Eyes: Negative for injury, pain,redness, and discharge ENT: Negative for injury,pain or swelling Cardiovascular: Negative for chest pain, palpitations, and edema Respiratory: Negative for shortness of breath, cough, and wheezing, Abdomen/GI: Negative for abdominal pain, nausea, vomiting, diarrhea, and constipation Back: Negative for injury and pain : Negative for injury, bleeding and discharge positive for difficulty urinating and lower abdominal bloating and pain MS/Extremity: Negative for injury and deformity Skin: Negative for rash, and discoloration Neuro: Negative for headache, weakness, numbness, tingling, and seizure Psych: Negative for suicide ideation, homicidal ideation, and hallucinations Initial Vital Sign VS Vital Signs Date Time Temp Pulse Resp B/P (MAP) Pulse Ox O2 Delivery O2 Flow Rate FiO2 05/08/25 11:25 97.3 78 20 153/61 99 Room Air Physical Exam Dictation General: awake, alert, NAD elderly male who is very hard of hearing Head/Face: Normocephalic, atraumatic Eyes: PERRL, EOMI, vision at baseline ENT: oral cavity clear, TMs clear, no signs of infection Neck: Trachea midline, supple, no nuchal rigidity Cardiovascular: RRR, normal S1/S2, No MRGs, no JVD Respiratory: CTAB, no respiratory distress, No rales or wheezes Abdomen: Soft, -tender, mildly-distended lower abdomen, normal bowel sounds, no guarding or rebound. Indwelling Beasley in place Skin: Warm, dry, normal turgor, no rash MS/Extremity: Pulses equal, no cyanosis, neurovascular intact, FROM Neuro: COAx4, GCS 15, strength 5/5, CN 2-12 intact, normal cerebellar exam, normal gait, Psych: Normal behavior, mood, and affect normal Extremities-trace edema without any palpable cords, Homans sign is negative ED Course ED Course Orders Procedure Category Date Status Time Bladder Scan CPOE 05/08/25 Transmitted 11:54 Morphine 2mg Syg PHA 05/08/25 Complete (Morphine 2mg Syg) 12:00 Current Medications Medications (Trade) Dose Ordered Sig/Henrietta Route PRN Reason Start Time Stop Time Status Last Admin Dose Admin Morphine Sulfate (morPHINE 2MG SYG) 2 mg ONCE ONCE IM 05/08/25 12:00 05/08/25 12:01 DC Vital Signs Date Time Temp Pulse Resp B/P (MAP) Pulse Ox O2 Delivery O2 Flow Rate FiO2 05/08/25 11:25 97.3 78 20 153/61 99 Room Air Medical Decision Making MDM Differential diagnosis: Obstruction of the Beasley by sediment, clot, BPH, urethral stricture, UTI with a severe inflammation This is a 79-year-old male who presented to the emergency room with a family member complaining of an indwelling Beasley catheter that is not draining. He also reported that he is unable to empty the bladder and his lower abdomen has been distended with the discomfort. They stated that the Beasley catheter was changed 2 weeks ago by the home health care nurse. No fever chills or rigors. No hematuria. No constipation Temperature 97.4 pulse 78 respirations 20 blood pressure 153/61 with a pulse oximetry of 99% on room air Chronic medical problems include diabetes mellitus, chronic anemia, CVA, coronary artery disease, hypertension, neuropathy and prostatitis and BPH Bladder scan revealed approximately 485 mL of urine. Decision was made to replace the Beasley. The procedure was smooth uneventful and patient immediately started draining the urine with a improvement in his abdominal discomfort as well as distention. Note the existing Beasley had a blood clot blocking the Beasley catheter. We will discharge him to follow up with his primary care physician Previous outside records reviewed: Old ER visits. Risk of complication and/or morbidity or mortality of patient management: None Medications-Per medication reconciliation Need for hospitalization: Patient does not meet criteria for hospitalization. Need for emergency major/minor surgery: No There are no social concerns with this patient. Prescription drug management Prescriptions will include symptomatic care Patient's prior external medical records from other ER visits were reviewed by me as indicated. Prior testing and results from previous visits were reviewed. Prior tests were taken into account with medical decision making and resource utilization, independent historian/historians were used to obtain complete medical history. I independently interpreted the test that were performed, results were reviewed by me and considered findings on radiology if ordered. Medical management and examination interpretation discussions were had by me with other qualified healthcare professionals as indicated for the patient's care. DX & DISP Disposition: Discharge Departure Impression: Primary Impression: Malfunction of Beasley catheter Additional Impression: Chronic indwelling Beasley catheter Condition: Stable Additional Instructions: Patient and the caregiver have been informed of all the diagnostic tests and the imaging conducted during the today's visit to the emergency room and has verbalized understanding of the results I have personally reviewed and interpreted all diagnostic exams performed here in the ER today as well as the vital signs documented by the nursing staff. The patient is now being discharged to home and should follow up with the primary care physician or the specialist as directed by the ER staff. 1 schedule a follow-up appointment; call your primary care physician's office on the next business day to set up a follow-up appointment. 2. Monitor symptoms; if your symptoms worsen return to the emergency room immediately. 3. Return to school/work; you may return to work or school in 2 days or as dire cted by your primary care physician. 4. Manage pain and fever; take [id number] Tylenol or Advil for pain or fever if there are no contraindications follow the recommended dosage instructions. 5. Stay well hydrated; drink plenty of oral fluids to stay hydrated. 6. Take prescribed medications; take any medications prescribed in the emergency room as directed bring them with you to your primary care physician visit for possible adjustments. 7. Complete medication course; finish the entire course of medication as prescribed even if you start feeling better. Do not have any leftover medication unless instructed otherwise. 8. Follow up on culture results; if a urine culture and wound culture was ordered in the emergency room please follow-up with your primary care physician within 2-3 days to review the culture and sensitivity report for appropriate antibiotic therapy adjustments. 9. Resume home medications; you may resume taking your home medications unless instructed otherwise. Please note that you had a new Beasley catheter placed today and the old catheter had a small blood clot occluding which maybe the reason why it was malfunct ioning. Referrals: NIYA GUTIÉRREZ MD (PCP) MILADY MARTIN MD May 08, 2025 12:00
--- NOTE | 2025-05-08 13:30 | NUR ---
PT'S CATHETER WAS CLEANED HE HAD A SMALL AMOUND OF BLOOD ON TIP OF PENIS POST BEASLEY CHANGE.CATHETER IS DRAINING,PT FEELS COMFORTABLE. CAREGIVER TRANSFERRED HIM INTO WHEELCHAIR AND TOOK HIM TO THEIR VEHICLE.
[2025-05-08 13:45] VITALS: BP 165/62; PULSE 67; RESP 18; TEMP 98; O2SAT 97
== END 2025-05-08 13:50 | disposition home or self-care (01) ==
LOC: EDH 11:23
DX: T83.091A Other mechanical complication of indwelling urethral catheter, initial encounter (principal); I11.9 Hypertensive heart disease without heart failure; E11.40 Type 2 diabetes mellitus with diabetic neuropathy, unspecified; I25.10 Atherosclerotic heart disease of native coronary artery without angina pectoris; Z79.4 Long term (current) use of insulin; Z79.82 Long term (current) use of aspirin; Z79.890 Hormone replacement therapy; Z79.899 Other long term (current) drug therapy; Z86.73 Personal history of transient ischemic attack (TIA), and cerebral infarction without residual deficits; Y84.6 Urinary catheterization as the cause of abnormal reaction of the patient, or of later complication, without mention of misadventure at the time of the procedure
CPT/HCPCS: 51702; 99284